=== PATIENT | male | born 1985 | race Caucasian/White ===

== ENCOUNTER → 2019-05-30 11:54 | Outpatient (BNVA) | payer OTHER, SELFPAY | PROVIDERS: Family Provider Nurse Practitioner Family; PCP Nurse Practitioner Family; Visit Provider Nurse Practitioner Family | DX: R05 Cough (principal); J06.9 Acute upper respiratory infection, unspecified | CPT/HCPCS: 87804 ==

== ENCOUNTER 2019-07-21 08:48 | Outpatient (CLI) | payer OTHER, SELFPAY ==
[2019-07-21] MEDS: iohexol 300 mg/mL 50 mL Btl PO (09:06)
--- NOTE | 2019-07-21 10:30 | CT_ITS ---
WS: [id number] CT ABDOMEN AND PELVIS WITH CONTRAST HISTORY: abdominal pain TECHNIQUE: Imaging performed of the abdomen and pelvis with IV contrast. Single phase imaging of the abdomen. Coronal and sagittal reformats are submitted. All CT scans at [facility] use at least one of these dose optimization techniques: automated exposure control; mA and/or kV adjustment per patient size (includes targeted exams where dose is matched to clinical indication); or iterativ e reconstruction. IV CONTRAST: Omnipaque 300; 95 mL IV. Oral contrast: Yes. DLP: 1059.42 mGy-cm. COMPARISON: None available. Lower thorax: Lung bases are degraded by breathing motion artifact. Heart is normal size. Small hiata l hernia. Liver/biliary system: Normal size liver. Hypodense dense nodule measuring 8 mm in the central RIGHT l obe of the liver. No additional nodules. There is a background of mild hepatic steatosis. Normal port al vein. No bile duct dilatation. Gallbladder: Normal. No gallstones or wall thickening. No pericholecystic fluid. Pancreas: Normal. Spleen: Normal. Adrenal glands: Normal. Right kidney: Normal size RIGHT kidney. Well-corticated hypodense nodule which is probably a cyst diane suring 9 mm in the upper pole. No renal obstruction. Left kidney: Normal. Aorta: Normal. Lymphadenopathy: None. Free fluid: None. GI tract: Normal appendix. No GI tract obstruction. No significant diverticular disease. Abdominal wall: Small ventral abdominal wall hernia measures 12 mm and contains fat only. Pelvis: Normal. Bones: Advanced degenerative changes throughout the lower thoracic and entire lumbar spine. Disc spac e narrowing with subchondral changes at the endplates. No fracture. No osteoblastic or osteolytic bon e disease. Sclerotic focus in the LEFT femoral neck may be a small bone island. No destructive bone p rocess. CT/CT abdomen pelvis w con* [id number] IMPRESSION: 1. Small ventral abdominal wall hernia contains fat only. 2. Small hiatal hernia. 3. Too small to characterize 8mm hypodensity RIGHT lobe of the liver. May be a cyst or hemangioma. Early metastatic disease may appear similar. 4. Subcentimeter RIGHT renal cyst. 5. Normal appendix.
[2019-07-21] MEDS: iohexol 300 mg/mL 100 mL Btl IV (10:38)
== END 2019-07-21 08:49 | disposition home or self-care (01) ==
LOC: RADWPI 08:54
PROVIDERS: Family Provider Nurse Practitioner Family; PCP Nurse Practitioner Family; Visit Provider Surgery
DX: R10.9 Unspecified abdominal pain (principal); K43.9 Ventral hernia without obstruction or gangrene; K44.9 Diaphragmatic hernia without obstruction or gangrene; N28.1 Cyst of kidney, acquired
CPT/HCPCS: 74177; Q9967

== ENCOUNTER → 2019-12-15 09:00 | Outpatient (BNVA) | payer OTHER, SELFPAY | PROVIDERS: Family Provider Nurse Practitioner Family; PCP Nurse Practitioner Family; Visit Provider Internal Medicine | DX: Z11.59 Encounter for screening for other viral diseases (principal) | CPT/HCPCS: 87635 ==

== ENCOUNTER 2019-12-20 06:55 | Day surgery (SDC) | payer OTHER, SELFPAY ==
[2019-12-15 13:27] VITALS: BMI 31.4
[2019-12-20 07:10] VITALS: BP 150/113; PULSE 77; RESP 18; TEMP 36.3; O2SAT 98
--- NOTE | 2019-12-20 07:14 | ANES.PREANE2 ---
Pre-Anesthetic Assessment Pre-Anesthetic Assessment: Height/Weight: Height 1.55 m Weight 75.296 kg Temp Pulse Resp BP Pulse Ox 97.3 F L 77 18 150/113 98 12/20/19 07:10 12/20/19 07:10 12/20/19 07:10 12/20/19 07:10 12/20/19 07:10 Preop Diagnosis: Bleeding per rectum Proposed Procedure: Operation Date: 12/20/19 08:15 Proposed Procedures p Colonoscopy 66378 K62.5(Not Applicable) - Mandeep Moss MD Familial anesthetic complications: None Was Beta Mckinley taken within 24 hours: N/A Last intake: Intake Last Liquid Date 12/19/19 Last Liquid Time 20:00 Last Solid Date 12/18/19 Social: Social History: No alcohol and No tobacco Exam: Pre-Anes Outpt Exam: alert, oriented x 3, clear to auscultation bilaterally and regular rate & rhythm Airway: Cervical ROM: WNL MP: 2 Dentition: Full Anesthetic Plan: ASA status: 1 Anesthesia: MAC Risk of > 500 ml blood loss (7ml/kg in children): No PFSH Anesthesia PFSH: Medical History Umbilical hernia Surgical History History of arthroplasty of right shoulder (~2006) History of colonoscopy History of esophagogastroduodenoscopy (EGD) History of rhinoplasty Family History Denies family history of Anesthesia complication Bleeding disorder Social History Smoking and tobacco status: never smoked Second hand smoke exposure: No Alcohol intake: never Adopted: No Caregiver/support person: Yes Lives independently: Yes Data Anesthesia Cardiac Studies: No Data to Display
[2019-12-20] MEDS: sodium chloride 0.9% 1,000 ML 30 ML IV (07:17)
[2019-12-20 07:19] VITALS: BP 147/106
--- NOTE | 2019-12-20 08:08 | W.PM.OPSUD ---
Surgery/Procedure H&P Update DATE OF PROCEDURE: December 20, 2019 DATE H&P PERFORMED: 12/11/19 H&P UPDATE INFORMATION: I have reviewed H&P completed within last 30 days, I have examined patient prior to procedure and No changes to prior documentation PREOP DIAGNOSIS: Bleeding per rectum PRIMARY INDICATION FOR PROCEDURE: The same PLANNED PROCEDURE: Operation Date: 12/20/19 08:15 Proposed Procedures p Colonoscopy 25916 K62.5(Not Applicable) - Mandeep Moss MD
--- NOTE | 2019-12-20 08:19 | ANE.PACU2 ---
Inpatient post-anesthesia follow up: Airway intact: Yes Vital signs: Temperature 97.3 F Pulse Rate 77 Respiratory Rate 18 Blood Pressure 147/106 Pulse Oximetry 98 Oxygen Delivery Me thod Room Air Oxygen Flow Rate Fraction of Inspir ed Oxygen Hydration adequate: Yes Nausea and vomiting: No Mental status: Baseline
[2019-12-20 08:24] VITALS: BP 106/82; PULSE 83; RESP 16; TEMP 36.1; O2SAT 95
[2019-12-20 08:37] VITALS: BP 109/85; PULSE 81; RESP 16; O2SAT 96
== END 2019-12-20 08:50 | disposition home or self-care (01) ==
PROVIDERS: PCP Nurse Practitioner Family; Visit Provider Surgery
PROC: 0DJD8ZZ Inspection of Lower Intestinal Tract, Via Natural or Artificial Opening Endoscopic (ICD-10-PCS; CPT 45378; principal; 2019-12-20 08:15)
DX: K55.21 Angiodysplasia of colon with hemorrhage (principal); K57.31 Diverticulosis of large intestine without perforation or abscess with bleeding
CPT/HCPCS: 12345; 45378; J2704; J7030

== ENCOUNTER → 2020-05-02 09:19 | Outpatient (BNVA) | payer OTHER, SELFPAY | PROVIDERS: Family Provider Nurse Practitioner Family; PCP Nurse Practitioner Family; Visit Provider Surgery | DX: Z20.828 Contact with and (suspected) exposure to other viral communicable diseases (principal); K42.9 Umbilical hernia without obstruction or gangrene | CPT/HCPCS: 87635 ==

== ENCOUNTER 2020-05-06 09:25 | Day surgery (SDC) | payer OTHER, SELFPAY ==
[2020-05-06 09:41] VITALS: BP 171/116; PULSE 88; RESP 16; TEMP 36.3; O2SAT 98
[2020-05-06] MEDS: sodium chloride 0.9% 1,000 ML 30 ML IV (09:58)
--- NOTE | 2020-05-06 10:03 | ANES.PREANE2 ---
Pre-Anesthetic Assessment Pre-Anesthetic Assessment: Height/Weight: Height 1.55 m Weight 76.657 kg Temp Pulse Resp BP Pulse Ox 97.4 F L 88 16 171/116 98 05/06/20 09:41 05/06/20 09:41 05/06/20 09:41 05/06/20 09:41 05/06/20 09:41 Preop Diagnosis: Ventral hernia Proposed Procedure: Operation Date: 05/06/20 11:10 Proposed Procedures p open Umbilical Hernia Repair w/ possible Mesh 12127 k42.9(Not Applicable) - Mandeep Moss MD Was Beta Mckinley taken within 24 hours: N/A Last intake: Intake Last Liquid Date 05/05/20 Last Liquid Time 20:00 Last Solid Date 05/05/20 Last Solid Time 18:00 Social: Social History: Alcohol and No alcohol Exam: Pre-Anes Outpt Exam: alert, oriented x 3, clear to auscultation bilaterally and regular rate & rhythm Airway: Submandibular: WNL Cervical ROM: WNL MP: 2 Dentition: Full Metabolic: Metabolic: Morbid obesity Anesthetic Plan: ASA status: 3 Anesthesia: General Risk of > 500 ml blood loss (7ml/kg in children): No Meds/Allergies Current Medications: Current Medications Generic Name Dose Route Start Last Admin Trade Name Freq PRN Reason Stop Dose Admin Sodium Chloride 1,000 mls @ 30 ml s/hr 05/06/20 09:45 05/06/20 09:58 Sodium Chloride 0.9% IV 05/07/20 09:44 30 mls/hr .Q24H LOVELY Administration PFSH Anesthesia PFSH: Medical History Gastroesophageal reflux disease Umbilical hernia Surgical History History of arthroplasty of right shoulder (~2006) History of colonoscopy History of esophagogastroduodenoscopy (EGD) History of rhinoplasty Family History Denies family history of Anesthesia complication Bleeding disorder Social History Smoking and tobacco status: never smoked Second hand smoke exposure: No Alcohol intake: never Adopted: No Caregiver/support person: Yes Lives independently: Yes Data Anesthesia Cardiac Studies: No Data to Display
--- NOTE | 2020-05-06 10:08 | W.PM.OPSUD ---
Surgery/Procedure H&P Update DATE OF PROCEDURE: May 06, 2020 DATE H&P PERFORMED: 04/15/20 H&P UPDATE INFORMATION: I have reviewed H&P completed within last 30 days, I have examined patient prior to procedure and No changes to prior documentation PREOP DIAGNOSIS: Ventral hernia PRIMARY INDICATION FOR PROCEDURE: The same I did discuss with the patient and his mom about the potential complications related to the procedure including but not limited to infection, bleeding injury to vital structures and risk of potential mesh placement and related complications. That may require future surgical intervention. Patient decided to proceed accordingly with mesh placement. PLANNED PROCEDURE: Operation Date: 05/06/20 11:10 Proposed Procedures p open Umbilical Hernia Repair w/ possible Mesh 45271 k42.9(Not Applicable) - Mandeep Moss MD
[2020-05-06] MEDS: lidocaine 2% INJ 20 mL INJECTION (11:09)
--- NOTE | 2020-05-06 11:11 | P.OP_ITS ---
Operative Report Date of procedure: May 06, 2020 Pre-op Diagnosis: Ventral hernia Post-op diagnosis: same Post-op Diagnosis: Incarcerated omental fat Post-op Findings: Fascial defect less than 2 inches in diameter Procedure Done: Open umbilical hernia repair with mesh placement polypropylene onlay technique Implants: Polypropylene mesh Specimens removed/disposition: Hernia sac and contents Surgeon: Mandeep Moss Truck Sales Representative: Surgical techdee Rod Circulating nurse Radha Anesthesia: General (LMA hydraulic and plumbing installer Marylin) Estimated blood loss (mL): 10 Condition: stable Disposition: same day Brief History: This is a pleasant 34 years old gentleman presents to my practice with symptomatic umbilical hernia Fulll H&P per chart Informed consent per chart Procedure: Patient was identified in holding area and the site of the hernia was marked by me ,Patient was brought then to the operating room, general endotracheal anesthesia was administered by the anesthesia provider.prophylactic IV antibiotics were given per protocol Time-out was done verifying the patient's name/date of /planned procedure and destination after the procedure, all were in agreement.SCDs confirmed to be functioning, preoperative antibiotics administered per protocol, and beta leeanna protocol was confirmed. Prep and drape of the abdomen was done under the usual sterile technique. I started by Supraumbilical skin incision, I was able to identify the incarcerated ventral hernia, dissection was carried all the way down to the fascia, hernia sac was then opened and the sac was excised in addition to excess omental tissues. Tissues excise sent for permanent pathology I was able to free the overlying fat on top of the fascia,to facilitate primary closure At that point the fascial defect was two inches in diameter,after freeing all the adhesions, under direct visualization I was able to use #1 PDS to repair the defect primarily,as an interrupted horizontal mattress sutures, thorough i rrigation of the wound was then achieved and hemostasis. Followed by placement of polypropylene mesh only technique and was anchored to the underlying fascia by 2-0 silk. A 2-0 Vicryl was used to attach the umbilicus to the underlying fascia, followed by deep dermal interrupted stitches, followed by 3-0 Vicryl, then 4-0 Monocryl was used for subcuticular closure of the skin incision. Lidocaine 2% was used for local infiltration to help postoperative pain Surgical glue was then applied. Followed by dry dressing and abdominal binder. Counts of sponges, needles and instruments were completed at the end of the procedure Patient tolerated the procedure well and was taken to the recovery area in stable condition I was present for the whole entire procedure
[2020-05-06 11:21] VITALS: BP 132/98; PULSE 77; RESP 16; TEMP 36.8; O2SAT 98
[2020-05-06 11:25] VITALS: BP 132/87; PULSE 74; RESP 24; O2SAT 97
[2020-05-06 11:30] VITALS: BP 131/94; PULSE 64; RESP 20; O2SAT 96
[2020-05-06 11:35] VITALS: BP 120/86; PULSE 86; RESP 16; TEMP 36.9; O2SAT 95
[2020-05-06 11:40] VITALS: BP 121/73; PULSE 88; RESP 18; O2SAT 97
--- NOTE | 2020-05-06 13:24 | ANE.PACU2 ---
Inpatient post-anesthesia follow up: Airway intact: Yes Vital signs: Temperature 98.4 F Pulse Rate 88 Respiratory Rate 18 Blood Pressure 121/73 Pulse Oximetry 97 Oxygen Delivery Me thod Room Air Oxygen Flow Rate 8 Fraction of Inspir ed Oxygen Hydration adequate: Yes Nausea and vomiting: No Pain level: 2 Mental status: Baseline
== END 2020-05-06 12:05 | disposition home or self-care (01) ==
PROVIDERS: Family Provider Nurse Practitioner Family; PCP Nurse Practitioner Family; Visit Provider Surgery
PROC: (CPT 49587; principal; 2020-05-06 10:50)
DX: K43.6 Other and unspecified ventral hernia with obstruction, without gangrene (principal); E66.01 Morbid (severe) obesity due to excess calories; Z68.31 Body mass index [BMI] 31.0-31.9, adult; K21.9 Gastro-esophageal reflux disease without esophagitis
CPT/HCPCS: 49587; 12345; 88302; 96365; C1781; J0131; J0690; J1100; J2250; J2405; J2704; J2710; J3010; J3490; J7030

== ENCOUNTER → 2021-09-29 08:46 | Outpatient (BNVA) | payer OTHER, SELFPAY | PROVIDERS: Family Provider Nurse Practitioner Family; PCP Nurse Practitioner Family; Referring Provider Nurse Practitioner Family; Visit Provider Podiatrist Foot & Ankle Surgery | DX: M67.472 Ganglion, left ankle and foot (principal); M79.672 Pain in left foot; M21.42 Flat foot [pes planus] (acquired), left foot; M72.2 Plantar fascial fibromatosis; M54.50 Low back pain, unspecified; M79.604 Pain in right leg; M79.605 Pain in left leg; Z87.891 Personal history of nicotine dependence | CPT/HCPCS: 73630; 99204; 99205 ==

== ENCOUNTER → 2021-12-23 10:20 | Outpatient (BNVA) | payer OTHER, SELFPAY | PROVIDERS: Family Provider Nurse Practitioner Family; PCP Nurse Practitioner Family; Visit Provider Anesthesiology Pain Medicine | DX: M47.816 Spondylosis without myelopathy or radiculopathy, lumbar region (principal); Z87.891 Personal history of nicotine dependence | CPT/HCPCS: 64635; 64636 ==

== ENCOUNTER → 2022-01-06 09:54 | Outpatient (BNVA) | payer OTHER, SELFPAY | PROVIDERS: Family Provider Nurse Practitioner Family; PCP Nurse Practitioner Family; Visit Provider Anesthesiology Pain Medicine | DX: M47.816 Spondylosis without myelopathy or radiculopathy, lumbar region (principal); M79.605 Pain in left leg; M79.604 Pain in right leg; F17.200 Nicotine dependence, unspecified, uncomplicated; M72.2 Plantar fascial fibromatosis; M21.42 Flat foot [pes planus] (acquired), left foot | CPT/HCPCS: 99213; 99214 ==

== ENCOUNTER → 2022-04-16 09:08 | Outpatient (BNVA) | payer OTHER, SELFPAY | PROVIDERS: Family Provider Nurse Practitioner Family; PCP Nurse Practitioner Family; Visit Provider Anesthesiology Pain Medicine | DX: M54.50 Low back pain, unspecified (principal); M79.604 Pain in right leg; M79.605 Pain in left leg | CPT/HCPCS: 99213 ==

== ENCOUNTER → 2023-06-18 10:40 | Outpatient (BNVA) | payer OTHER, SELFPAY | PROVIDERS: Family Provider Nurse Practitioner Family; PCP Nurse Practitioner Family; Visit Provider Nurse Practitioner Family | DX: E78.5 Hyperlipidemia, unspecified | CPT/HCPCS: 80053; 80061 ==

== ENCOUNTER → 2023-07-15 10:26 | Outpatient (BNVA) | payer OTHER, SELFPAY | PROVIDERS: Family Provider Nurse Practitioner Family; PCP Nurse Practitioner Family; Visit Provider Anesthesiology Pain Medicine | DX: G89.29 Other chronic pain; M54.16 Radiculopathy, lumbar region | CPT/HCPCS: 72110; 99214 ==

== ENCOUNTER 2023-08-11 12:36 | Outpatient (CLI) | payer OTHER, SELFPAY ==
--- NOTE | 2023-08-11 13:00 | MR_ITS ---
WS: [id number] MRI LUMBAR SPINE NONCONTRAST HISTORY: M54.16 - Radiculopathy, lumbar region COMPARISON: None available. TECHNIQUE: Sagittal and axial multisequence imaging is submitted. Moderate spondylitic disease throughout the cervical and thoracic spine. Straightening and mild curvature lumbar spine. Moderate disc space narrowing and desiccation. Osteopenia. No fracture. Conus terminates normally at L1-2 disc level. L1-L2: Mild facet arthritis. No stenosis. L2-L3: Mild facet arthritis. No stenosis. L3-L4: Mild bilateral facet joint arthritis. Mild annular disc bulging and osteophytosis. No stenosis . L4-L5: Diffuse annular disc bulging with osteophytic ridging. Moderate facet joint arthritis. Greater osteophyte in the RIGHT foramen. Mild RIGHT foraminal stenosis. L5-S1: Diffuse annular disc bulging with osteophytic ridging and moderate facet joint arthritis. Mode rate bilateral foraminal stenosis. Paravertebral soft tissues are negative. MR/MR lumbar spine wo con* [id number] IMPRESSION: 1. Moderate disc space narrowing throughout the lumbar spine with vertebral germania dy osteophytosis. No fractures. 2. No central stenosis. 3. Bilateral foraminal stenosis L5-S1. 4. Mild RIGHT foraminal stenosis at L4-5.
== END 2023-08-11 12:37 | disposition home or self-care (01) ==
LOC: RAD 12:37
PROVIDERS: Family Provider Nurse Practitioner Family; PCP Nurse Practitioner Family; Visit Provider Anesthesiology Pain Medicine
DX: M54.16 Radiculopathy, lumbar region (principal); M47.896 Other spondylosis, lumbar region; M51.36 Other intervertebral disc degeneration, lumbar region; M25.78 Osteophyte, vertebrae; M48.061 Spinal stenosis, lumbar region without neurogenic claudication; M48.07 Spinal stenosis, lumbosacral region
CPT/HCPCS: 72148

== ENCOUNTER → 2023-08-23 10:22 | Outpatient (BNVA) | payer OTHER, SELFPAY | PROVIDERS: Family Provider Nurse Practitioner Family; PCP Nurse Practitioner Family; Visit Provider Anesthesiology Pain Medicine | DX: M48.061 Spinal stenosis, lumbar region without neurogenic claudication; M48.07 Spinal stenosis, lumbosacral region | CPT/HCPCS: 99214 ==

== ENCOUNTER → 2023-08-31 14:04 | Outpatient (BNVA) | payer OTHER, SELFPAY | PROVIDERS: Family Provider Nurse Practitioner Family; PCP Nurse Practitioner Family; Visit Provider Anesthesiology Pain Medicine | DX: M54.16 Radiculopathy, lumbar region (principal) | CPT/HCPCS: 64483; 64484; J1100; J3490 ==

== ENCOUNTER → 2023-09-14 12:37 | Outpatient (BNVA) | payer OTHER, SELFPAY | PROVIDERS: Family Provider Nurse Practitioner Family; PCP Nurse Practitioner Family; Visit Provider Anesthesiology Pain Medicine | DX: M54.16 Radiculopathy, lumbar region (principal) | CPT/HCPCS: 64483; 64484 ==

== ENCOUNTER → 2023-09-17 09:50 | Outpatient (BNVA) | payer OTHER, SELFPAY | PROVIDERS: Family Provider Nurse Practitioner Family; PCP Nurse Practitioner Family; Visit Provider Nurse Practitioner Family | DX: E78.2 Mixed hyperlipidemia (principal) | CPT/HCPCS: 80053; 80061 ==

== ENCOUNTER → 2024-04-24 09:26 | Outpatient (BNVA) | payer OTHER, SELFPAY | PROVIDERS: Family Provider Nurse Practitioner Family; PCP Nurse Practitioner Family; Visit Provider Nurse Practitioner Family | DX: I10 Essential (primary) hypertension (principal) | CPT/HCPCS: 80053; 80061 ==

== ENCOUNTER 2024-05-02 10:29 | Outpatient (CLI) | payer OTHER, SELFPAY ==
--- NOTE | 2024-05-02 10:38 | XR_ITS ---
WS: [id number] RIGHT SHOULDER: 3 VIEW(S) TECHNIQUE: Internal and external rotation with Y view. HISTORY: M25.511 - Pain in right shoulder COMPARISON: None available. No acute fracture or dislocation. Mild narrowing of the glenohumeral joint. Calcific tendinitis invol ving the rotator cuff. Calcific deposition measures 4 mm in width. Visualized RIGHT lung is clear. XR/XR shoulder RT min 2V* [id number] IMPRESSION: 1. No acute fracture. 2. Mild calcific tendinitis distal rotator cuff.
== END 2024-05-02 10:30 ==
LOC: RAD 10:31
PROVIDERS: Family Provider Nurse Practitioner Family; PCP Nurse Practitioner Family; Visit Provider Nurse Practitioner Family
DX: M25.511 Pain in right shoulder (principal); M54.6 Pain in thoracic spine; M54.9 Dorsalgia, unspecified; G89.29 Other chronic pain
CPT/HCPCS: 73030; 99214

== ENCOUNTER 2024-05-05 14:44 | Outpatient (CLI) | payer OTHER, SELFPAY ==
--- NOTE | 2024-05-05 15:15 | MR_ITS ---
WS: [id number] MRI LUMBAR SPINE NONCONTRAST TECHNIQUE: Sagittal T1, T2 and STIR imaging. Axial T1 and T2 imaging. CLINICAL INFORMATION: M48.062 - Spinal stenosis, lumbar region with neurogenic ... COMPARISON: 08/11/2023 FINDINGS: Mild lumbar curve. No acute compression. Disc space narrowing throughout the lower thoracic and lumbar spine. Prominent epidural fat contribut es to narrowing of the thecal sac. Disc space narrowing is advanced for patient this age. Similar-antonio earing disc space narrowing throughout the cervical and thoracic spine on the cardiac/vascular sonographer imaging. Endplate Schmorl's nodes. L1-L2: Disc space narrowing. Fatty marrow endplate replacement. Mild facet arthropathy. Spinal canal and foramen are patent. L2-L3: Disc space narrowing with fatty marrow endplate changes. Mild facet arthropathy. Spinal canal and foramen are patent. L3-L4: Disc space narrowing with fatty marrow endplate replacement. Mild to moderate narrowing of the thecal sac due to prominent epidural fat. Mild to moderate facet arthropathy. RIGHT eccentric disc b ulging slightly encroaches on the far exiting RIGHT L5 nerve root. L4-L5: Disc desiccation. Mild to moderate narrowing of the thecal sac mainly due to prominent circumf erential epidural fat. Moderate facet arthropathy. Foramen are patent. L5-S1: Tapering of the thecal sac at this level. Diffuse prominent epidural fat. Mild RIGHT and no si gnificant LEFT foraminal narrowing. Moderate to advanced facet arthropathy. L5 is partially sacralize d. Visualized pelvic bony structures: Normal. Paravertebral soft tissues: Normal. MR/MR lumbar spine wo con* [id number] IMPRESSION: 1. Diffuse disc narrowing with fatty marrow endplate type changes throughout t he lumbar spine advanced for patient this age. Similar-appearing changes throug hout the cervical and thoracic spine seen on cardiac/vascular sonographer imaging. 2. Diffuse epidural fat contributes to narrowing of the thecal sac which appea rs progressed at the L3 and L4 levels compared to previous. Tapering of the the nikita sac at L5-S1. 3. Mild to moderate narrowing of the thecal sac L3-L4 and L4-L5 due to promine nt circumferential epidural fat. 4. Moderate facet arthropathy L4-L5 and advanced L5-S1. 5. Far RIGHT foraminal protrusion L3-4 slightly contacts the far exiting RIGHT L3 nerve root laterally. 6. Mild RIGHT L5-S1 foraminal narrowing.
== END 2024-05-05 14:45 | disposition home or self-care (01) ==
LOC: RAD 14:45
PROVIDERS: Family Provider Nurse Practitioner Family; PCP Nurse Practitioner Family; Visit Provider Anesthesiology Pain Medicine
DX: M48.062 Spinal stenosis, lumbar region with neurogenic claudication (principal); M43.8X6 Other specified deforming dorsopathies, lumbar region; M48.04 Spinal stenosis, thoracic region; R93.7 Abnormal findings on diagnostic imaging of other parts of musculoskeletal system; M47.896 Other spondylosis, lumbar region; M47.897 Other spondylosis, lumbosacral region; M51.26 Other intervertebral disc displacement, lumbar region; M48.07 Spinal stenosis, lumbosacral region
CPT/HCPCS: 72148

== ENCOUNTER → 2024-05-15 10:13 | Outpatient (BNVA) | payer OTHER, SELFPAY | PROVIDERS: Family Provider Nurse Practitioner Family; PCP Nurse Practitioner Family; Visit Provider Anesthesiology Pain Medicine | DX: M54.6 Pain in thoracic spine (principal); G89.29 Other chronic pain; M54.9 Dorsalgia, unspecified | CPT/HCPCS: 99214 ==

== ENCOUNTER → 2024-05-23 14:08 | Outpatient (BNVA) | payer OTHER, SELFPAY | PROVIDERS: Family Provider Nurse Practitioner Family; PCP Nurse Practitioner Family; Visit Provider Anesthesiology Pain Medicine | DX: M47.816 Spondylosis without myelopathy or radiculopathy, lumbar region (principal); M54.6 Pain in thoracic spine; G89.29 Other chronic pain | CPT/HCPCS: 64635; 64636; J1010 ==

== ENCOUNTER → 2024-06-06 12:55 | Outpatient (BNVA) | payer OTHER, SELFPAY | PROVIDERS: Family Provider Nurse Practitioner Family; PCP Nurse Practitioner Family; Visit Provider Anesthesiology Pain Medicine | DX: M47.816 Spondylosis without myelopathy or radiculopathy, lumbar region (principal); M54.6 Pain in thoracic spine; G89.29 Other chronic pain; Z87.891 Personal history of nicotine dependence | CPT/HCPCS: 64635; 64636; J1010 ==

== ENCOUNTER → 2024-06-09 09:38 | Outpatient (BNVA) | payer OTHER, SELFPAY | PROVIDERS: Family Provider Nurse Practitioner Family; PCP Nurse Practitioner Family; Visit Provider Nurse Practitioner | DX: M25.511 Pain in right shoulder (principal) | CPT/HCPCS: 73030 ==

== ENCOUNTER → 2024-06-30 10:04 | Outpatient (BNVA) | payer OTHER, SELFPAY | PROVIDERS: Family Provider Nurse Practitioner Family; PCP Nurse Practitioner Family; Visit Provider Nurse Practitioner Family | DX: M54.6 Pain in thoracic spine (principal); G89.29 Other chronic pain; M54.50 Low back pain, unspecified | CPT/HCPCS: 99213 ==

== ENCOUNTER → 2024-07-28 09:18 | Outpatient (BNVA) | payer OTHER, SELFPAY | PROVIDERS: Family Provider Nurse Practitioner Family; PCP Nurse Practitioner Family; Visit Provider Nurse Practitioner Family | DX: E78.2 Mixed hyperlipidemia (principal) | CPT/HCPCS: 80061 ==

== ENCOUNTER → 2024-08-04 07:58 | Outpatient (BNVA) | payer OTHER, SELFPAY | PROVIDERS: Family Provider Nurse Practitioner Family; PCP Nurse Practitioner Family; Visit Provider Nurse Practitioner | DX: M19.011 Primary osteoarthritis, right shoulder (principal); G89.29 Other chronic pain; M75.31 Calcific tendinitis of right shoulder | CPT/HCPCS: 99214 ==

== ENCOUNTER 2024-09-01 08:01 | Outpatient (CLI) | payer OTHER, SELFPAY ==
--- NOTE | 2024-09-01 08:00 | IR_ITS ---
WS: [id number] RIGHT SHOULDER ARTHROGRAM UNDER FLUOROSCOPY. PRIOR TO MRI EVALUATION. HISTORY: Right shoulder pain COMPARISON: None available. FLUOROSCOPY TIME: 1min [id number] # of spot films: 2 Procedure, risks and complications were explained to the patient. Consent has been obtained. Under fluoroscopic guidance the skin is marked over the medial superior third of the humeral head, cleansed with ChloraPrep and anesthetized with lidocaine. 22- gauge spinal needle is inserted to the cortex of the humeral head. Test injection with Omnipaque reveals the needle is appropriately positioned in the joint. A mixture of 10 cc sterile saline, 5 cc Omnipaque and 0.1 mmol gadolinium are injected under fluoroscopic guidance. Patient tolerated the joint distention well. No complications. IR/IR arthrogram shoulderRT [id number] IMPRESSION: Uncomplicated RIGHT shoulder joint injection prior to MRI.
--- NOTE | 2024-09-01 08:05 | MR_ITS ---
WS: [id number] MRI RIGHT SHOULDER ARTHROGRAM HISTORY:, Pain, prior rotator cuff repair. COMPARISON: None available. TECHNIQUE: Pre and postcontrast imaging. Gadolinium mixture was injected under fluoroscopy. Coronal T1 fat sat, sagittal T2 fat sat, coronal T2 fat sat, axial proton density, axial T1 nonfat saturation and ABER sagittal T1 fat sat views are submitted. Prearthrogram: Mild AC joint arthritis. No significant osteophyte encroachment upon the myotendinous supraspinatus. Very mild downsloping and hooking of the acromion with mild subacromial impingement. Small amount of fluid in the subacromial bursa. No os acromion. Biceps tendon normal position in the b icipital groove. Micrometallic artifacts are noted surrounding the shoulder from prior repair. Normal position of the humeral head within the glenoid. Loss of the normal cartilage and cortical surface throughout the glenoid with small osteochondral defects. No rotator cuff muscle atrophy or edema. Mild tendinopathy in the distal supraspinatus tendon. No tear is identified. Intermediate signal in the distal subscapularis tendon with mild thickening at the coracohumeral interval. Osteophyte from the lesser tuberosity contributing to encroachment upon the subscapularis tendon. No labral tear identified. Intermediate signal in the superior labrum. Post arthrogram: Contrast extends into the superior labrum consistent with a labral tear. Contrast extends also through the rotator cuff interval which may be contrast extending along the needle tract. Coracohumeral ligament is intact. Biceps tendon appears intact. Additional mild increased signal noted on the postcontrast imaging within the biceps tendon but there is no tear identified. MR/MR shoulder RT wo/w con [id number] IMPRESSION: 1. No rotator cuff tear identified. 2. Superior labral tear. 3. Mild downsloping of the acromion with mild hooking causing mild subacromial impingement. 4. Normal position of the biceps tendon. 5. Loss of the normal cartilage with osteochondral lesions along the glenoid. 6. Mild distal tendinopathy of the supraspinatus. 7. Injected contrast extends through the rotator cuff interval but this may be contrast extending along the needle tract. The coracohumeral ligament appears intact. No tendon tear.
[2024-09-01] MEDS: iohexol 240 mg/mL 50 mL Btl INTRA-ARTI (10:23)
[2024-09-01] MEDS: gadobenate dimeglumine 20 mL vial IV (10:24)
== END 2024-09-01 08:02 | disposition home or self-care (01) ==
PROVIDERS: Family Provider Nurse Practitioner Family; PCP Nurse Practitioner Family; Visit Provider Nurse Practitioner
DX: M19.011 Primary osteoarthritis, right shoulder (principal); M75.31 Calcific tendinitis of right shoulder
CPT/HCPCS: 23350; 73223; 77002; J9999

== ENCOUNTER → 2024-09-29 11:46 | Outpatient (BNVA) | payer OTHER, SELFPAY | PROVIDERS: Family Provider Nurse Practitioner Family; PCP Nurse Practitioner Family; Visit Provider Nurse Practitioner | DX: M19.011 Primary osteoarthritis, right shoulder (principal) | CPT/HCPCS: 36415; 80053; 81001; 85025 ==

== ENCOUNTER 2024-10-24 08:43 | Day surgery (SDC) | payer OTHER, SELFPAY ==
[2024-10-24] VITALS (9 sets, daily range): BP systolic 109–127; BP diastolic 74–91; PULSE 67–81; RESP 12–18; TEMP 36.1–36.2; O2SAT 92–94; BMI 31.2
[2024-10-24] MEDS: acetaminophen 1,000 MG/100 ML PIGGYBACK 400 MG IV (09:25)
--- NOTE | 2024-10-24 10:16 | ANES.PREANE2 ---
Pre-Anesthetic Assessment Height/Weight: Height 5 ft 1 in Weight 10 lb 5 oz O2 Del Method Room Air 10/24/24 08:56 Preop Diagnosis: Impingement of shoulder Operation Date: 10/24/24 10:20 Proposed Procedures p RIGHT OPEN Shoulder Acromioplasty(Right) - Stephanie Kiran MD s RIGHT Distal Clavicle Resection(Right) - Stephanie Kiran MD s RIGHT Debridement Shoulder(Right) - Stephanie Kiran MD Was Beta Mckinley taken within 24 hours: N/A Was Clonidine taken within 24 hours: N/A Last intake: Intake Last Liquid Date 10/23/24 Last Liquid Time 19:00 Last Solid Date 10/23/24 Last Solid Time 19:00 Social Tobacco and No alcohol Exam alert, oriented x 3, clear to auscultation bilaterally and regular rate & rhythm Airway Submandibular: within normal limits Cervical ROM: within normal limits Mallampati: Class III Dentition: full Anesthetic Plan ASA status: 3 Anesthesia: General and Regional (specify below) Other: No prior issues with anesthesia NPO since yesterday evening History of hypertension on lisinopril GERD, controlled with omeprazole Labs from 09/29/2024 reviewed and acceptable for procedure today METs greater than 4 Plan for general anesthesia with preop nerve block Medications/Allergies Home Medications ?Medication ?Instructions ?Recorded ?Confirmed ?Last Taken ?Type 3/4 length graphite with #1 ea 01/06/22 09/29/24 Unknown Rx offloading of STM omeprazole 40 mg capsule,delayed 40 mg PO DAILY PRN gerd #60 caps 02/18/24 10/23/24 Unknown Rx release ropinirole 0.25 mg tablet 0.25 mg PO DAILY #90 tabs 02/18/24 10/23/24 Unknown Rx simvastatin 10 mg tablet (Zocor) 10 mg PO DAILY #90 tabs 08/02/24 10/23/24 10/22/24 Rx lisinopril 20 mg tablet 20 mg PO BID #180 tabs 10/18/24 10/23/24 10/22/24 Rx Allergies Allergy/AdvReac Type Severity Reaction Status Date / Time celecoxib (From Celebrex) Allergy Intermediate ADR-Itching Verified 10/24/24 08:54 gabapentin Allergy ALGY-Redness Verified 10/24/24 08:54 of Skin Sulfa (Sulfonamide Allergy Unknown Verified 10/24/24 08:54 Antibiotics) Current Medications Generic Name Dose Route Start Last Admin Trade Name Arnoldoq PRN Reason Stop Dose Admin Sodium Chloride 1,000 mls @ 30 mls/hr 10/24/24 09:15 10/24/24 09:24 Sodium Chloride 0.9% IV 10/25/24 09:14 30 mls/hr .Q24H LOVELY Administration PFSH Anesthesia Medical History Impingement of right shoulder Calcific tendonitis of right shoulder Primary osteoarthritis of right shoulder Gastroesophageal reflux disease Diverticulosis Bleeding per rectum Umbilical hernia Surgical History History of rhinoplasty History of arthroplasty of right shoulder (~2006) History of esophagogastroduodenoscopy (EGD) History of colonoscopy Family History Denies family history of Anesthesia complication Bleeding disorder Social History Smoking and tobacco/nicotine status: current every day tobacco/nicotine user Second hand smoke exposure: No Alcohol intake: current Alcohol intake frequency: 0-2 Drinks per Day Alcohol type: beer Substance/Drug Use: never Adopted: No Caregiver/support person: Yes Lives independently: Yes
--- NOTE | 2024-10-24 10:44 | ANES.PROC ---
Anesthesia Procedures Procedure/Date: 10/24/24 Nerve Block ^: Nerve Block 1: Main Anesthesia: other (100 mcg fentanyl and 2 mg Versed) Time Out Performed: Yes Consent: requested by attending/covering physician and from patient Nerve block location: interscalene Anesthesia monitors applied: pulse oximetry, EKG, BP cuff and oxygen Nerve block position: supine Anesthetic Used: ropivicaine 0.5% Amount of anesthesia used (mL): 30 Ultrasound used to: recognize landmarks Nerve Stimulator Used?: Yes Interscalene/Femoral BLK: other needle (pjunk 4inch) Injection: neg aspiration of heme Patient Tolerated Procedure: well Complications: none Additional Comments: Decadron 4 mg added to block
[2024-10-24] MEDS: ceFAZolin 2,000 mg SDV 2000 MG IVP (11:17)
[2024-10-24] MEDS: ceFAZolin 1,000 mg SDV 1000 MG IRRIGATION (11:57)
--- NOTE | 2024-10-24 12:00 | P.HPUD_ITS ---
Surgery/Procedure H&P Update DATE OF PROCEDURE: October 25, 2024 DATE H&P PERFORMED: 10/20/24 H&P UPDATE INFORMATION: I have reviewed H&P completed within last 30 days, I have examined patient prior to procedure, No changes to prior documentation, H&P is in [facility] EMR on date indicated and Risks and benefits of the procedure reviewed PREOP DIAGNOSIS: Impingement of shoulder PLANNED PROCEDURE: Operation Date: 10/24/24 10:20 Proposed Procedures p RIGHT OPEN Shoulder Acromioplasty(Right) - Stephanie Kiran MD s RIGHT Distal Clavicle Resection(Right) - Stephanie Kiran MD s RIGHT Debridement Shoulder(Right) - Stephanie Kiran MD Related Problem List Diagnoses 1. Impingement of right shoulder: 2. Calcific tendonitis of right shoulder:
--- NOTE | 2024-10-24 12:50 | P.OP_ITS ---
Operative Report Date of procedure: October 24, 2024 Pre-op diagnosis: Impingement right shoulder with calcific tendinitis and significant osteoarthritis glenohumeral joint Post-op diagnosis: Impingement right shoulder with calcific tendinitis and significant osteoarthritis glenohumeral joint Post-op findings: Right shoulder impingement with downsloping acromion. No evidence of osteop hytes on the undersurface or upper surface of the acromioclavicular joint by palpation. Bursitis with inflammation of the bursal side of the rotator cuff Procedure done: Right shoulder open acromioplasty with bursectomy and rotator cuff debridement Implants: None Specimens removed/disposition: None Pathology: None Surgeon: Stephanie Kiran MD Punchboard Stuffer: Prudence Salazar NP, whose services were required for positioning, retraction, exposure, and closure. Anesthesia: General (Intubated with preoperative interscalene block, ASA 3) Estimated blood loss (mL): 2 IV fluids (mL): 1,000 Urine output (mL): 0 Complications: None Findings: As noted above Condition: stable Disposition: PACU (Then return to same-day surgery for discharge to home) Brief History: This 39-year-old gentleman presented with complaints of significant right shoulder pain. The patient had conservative measures without significant improvement. He had an MRI arthrogram which did not demonstrate a rotator cuff tear, but it did demonstrate downsloping of the acromion causing impingement. He also was found to have glenohumeral osteoarthritis. The patient had significant limitations in his activities of daily living, but he wished to p roceed with surgical intervention in the form of open acromioplasty with possible distal clavicle resection, debridement, and bursectomy. He was seen the day of surgery and had further opportunity to ask and have questions answered. Procedure: The patient was brought to the operating theater and underwent general, intubated, anesthesia, ASA 3. The patient was placed in a beachchair position and subsequently the right upper extremity was prepped and draped in the usual fashion utilizing DuraPrep. The arm was draped free. A surgical pause was p erformed prior to commencement of the surgical procedure. At the time of the surgical pause, we confirmed the site and side of surgery as well as administration of appropriate preoperative antibiotics Ancef 2 g. MRI was also reviewed at that time. Following the surgical pause, an incision was made at approximately the level of the acromioclavicular joint extending across the anterolateral corner of the acromion and distally as necessary. Care was taken to avoid injury to the axillary nerve by limiting the distal extent of the incision. Dissection continued through skin and soft tissues using a scalpel. Hemostasis was obtained using electrocautery. Soft tissues were elevated off the acromion. An acromioplasty was then accomplished using a combination of a saw and a power rasp. With this, we were able to remove compression caused by the acromion. The rotator cuff was then evaluated to look for tears. There was significant bursitis requiring excision of the bursa. There was no calcium palpable. Rotator cuff was evaluated and found to have multiple areas of irritation which were slightly debrided using a rongeur. The shoulder was placed through further range of motion to assure there was no evidence of rotator cuff tear. The acromioclavicular joint was was palpated and found to have no significant osteophytes either on the upper or undersurface. The wound was irrigated and closure was accomplished with 0 Vicryl in the capsular tissues overlying the acromioclavicular joint area as well as over the acromion and down into the deltoid muscle. 3-0 Monocryl was used to close the subcutaneous tissues followed by 4-0 Monocryl subcuticular closure. This was followed by Dermabond, Steri-Strips, and OpSite. The patient was placed in a sling and was returned to the recovery room in satisfactory condition. The patient will be discharged to home to follow-up in the office as scheduled. There were no complications and no specimens. Related Problem List Diagnoses 1. Impingement of right shoulder: 2. Primary osteoarthritis of right shoulder: 3. Calcific tendonitis of right shoulder:
--- NOTE | 2024-10-24 13:10 | ANE.PACU2 ---
Inpatient post-anesthesia follow up: Airway intact: Yes Vital signs: Temperature 97.1 F Pulse Rate 69 Respiratory Rate 16 Blood Pressure 127/77 Pulse Oximetry 93 Oxygen Delivery Me thod Room Air Oxygen Flow Rate Fraction of Inspir ed Oxygen Hydration adequate: Yes Nausea and vomiting: No Pain level: 1 Mental status: Baseline
== END 2024-10-24 13:55 | disposition home or self-care (01) ==
PROVIDERS: PCP Nurse Practitioner Family; Visit Provider Specialist
PROC: (CPT 23130; principal; 2024-10-24 10:20)
PROC: (CPT 23130; 2024-10-24 10:20)
DX: M75.41 Impingement syndrome of right shoulder (principal); M75.31 Calcific tendinitis of right shoulder; M19.011 Primary osteoarthritis, right shoulder; I10 Essential (primary) hypertension; K21.9 Gastro-esophageal reflux disease without esophagitis; F17.200 Nicotine dependence, unspecified, uncomplicated; Z96.611 Presence of right artificial shoulder joint; E78.5 Hyperlipidemia, unspecified
CPT/HCPCS: 23130; J0131; J0690; J1100; J2405; J2704; J3010; J3490; J7030; J9999

== ENCOUNTER → 2024-11-06 13:10 | Outpatient (BNVA) | payer OTHER, SELFPAY | PROVIDERS: PCP Nurse Practitioner Family; Visit Provider Nurse Practitioner | DX: Z98.890 Other specified postprocedural states (principal) | CPT/HCPCS: 99024 ==

== ENCOUNTER → 2024-12-04 14:42 | Outpatient (BNVA) | payer OTHER, SELFPAY | PROVIDERS: PCP Nurse Practitioner Family; Visit Provider Nurse Practitioner | DX: Z98.890 Other specified postprocedural states (principal); M25.511 Pain in right shoulder | CPT/HCPCS: 20610; 99024; 99213; J1100; J3301; J9999 ==

== ENCOUNTER → 2024-12-18 10:32 | Outpatient (BNVA) | payer OTHER, SELFPAY | PROVIDERS: PCP Nurse Practitioner Family; Visit Provider Anesthesiology Pain Medicine | DX: M47.816 Spondylosis without myelopathy or radiculopathy, lumbar region (principal); M54.50 Low back pain, unspecified; M51.16 Intervertebral disc disorders with radiculopathy, lumbar region; G89.29 Other chronic pain | CPT/HCPCS: 99214 ==

== ENCOUNTER → 2025-01-02 14:08 | Outpatient (BNVA) | payer OTHER, SELFPAY | PROVIDERS: PCP Nurse Practitioner Family; Visit Provider Anesthesiology Pain Medicine | DX: M47.816 Spondylosis without myelopathy or radiculopathy, lumbar region (principal) | CPT/HCPCS: 64493; 64494; 64495; J1010; J3490; J9999 ==

== ENCOUNTER → 2025-01-29 09:16 | Outpatient (BNVA) | payer OTHER, SELFPAY | PROVIDERS: PCP Nurse Practitioner Family; Visit Provider Anesthesiology Pain Medicine | DX: M47.816 Spondylosis without myelopathy or radiculopathy, lumbar region (principal); M51.16 Intervertebral disc disorders with radiculopathy, lumbar region; G89.29 Other chronic pain | CPT/HCPCS: 99214 ==

== ENCOUNTER → 2025-03-16 11:17 | Outpatient (BNVA) | payer OTHER, SELFPAY | PROVIDERS: PCP Nurse Practitioner Family; Visit Provider Nurse Practitioner | DX: M19.011 Primary osteoarthritis, right shoulder (principal); M75.31 Calcific tendinitis of right shoulder | CPT/HCPCS: 20610; J1100; J2795; J3301; J9999 ==

== ENCOUNTER → 2025-03-30 08:35 | Outpatient (BNVA) | payer OTHER, SELFPAY | PROVIDERS: PCP Nurse Practitioner Family; Visit Provider Nurse Practitioner Family | DX: R53.83 Other fatigue (principal); I10 Essential (primary) hypertension | CPT/HCPCS: 80053; 80061; 84443; 85025 ==